=== PATIENT | female | born 1970 | race African-American/Black ===

== ENCOUNTER 2017-05-31 01:04 | Emergency (ER) | payer OTHER ==
[~2017-05-31] VITALS: Ht 172.7 cm; Wt 86.0 kg
[2017-05-31] MEDS ORDERED: LORAZEPAM 1MG TABLET PO ONE (02:45)
[2017-05-31 03:01] LABS: CLARITY URINE TURBID (CLEAR); COLOR URINE DARK YELLOW (YELLOW); GLUCOSE URINE NEGATIVE (NEGATIVE); KETONES URINE TRACE (NEGATIVE); LEUKOCYTE ESTERASE URINE NEGATIVE (NEGATIVE); NITRITE URINE NEGATIVE (NEGATIVE); OCCULT BLOOD URINE NEGATIVE (NEGATIVE); PROTEIN URINE TRACE (NEGATIVE)
[2017-05-31 03:01] LABS: BASOPHILS % 0.4 % (0.0-2.0); EOSINOPHILS % 3.4 % (0.0-5.0); HEMATOCRIT. 29.8 % (36.0-48.0); HEMOGLOBIN. 9.5 g/dL (12.0-16.0); LYMPHOCYTES % 17.8 % (20.0-50.0); MEAN CORPUSCULAR HEMOGLOBIN 27.7 pg (28.0-32.0); MEAN CORPUSCULAR VOLUME 86.7 fL (81.0-99.0); MEAN PLATELET VOLUME 8.1 fl (7.4-10.4); MONOCYTES % 8.4 % (2.0-8.0); PLATELET 208 x1000/uL (130-400); RED BLOOD CELL COUNT 3.43 mill/uL (4.2-5.4)
[2017-05-31 03:10] LABS: CARBON DIOXIDE 28 mEq/L (21-32); CHLORIDE 109 mEq/L (98-107); ETHANOL BLOOD < 10 mg/dL
[2017-05-31 03:10] LABS: *AMPHETAMINES SCREEN URINE NEGATIVE (NEGATIVE); *BARBITURATES SCREEN URINE NEGATIVE (NEGATIVE); *BENZODIAZEPINES SCREEN URINE NEGATIVE (NEGATIVE); CANNABINOID URINE SCREEN NEGATIVE (NEGATIVE); METHADONE URINE SCREEN NEGATIVE (NEGATIVE); OPIATES URINE SCREEN NEGATIVE (NEGATIVE); PHENCYCLIDINE URINE SCREEN NEGATIVE (NEGATIVE)
[2017-05-31 03:47] LABS: *COCAINE SCREEN URINE PRESUMTIVE POSITIVE (NEGATIVE)
[2017-05-31 18:00] VITALS: BP 124/65
== END 2017-05-31 20:33 ==
LOC: ER 01:04
DX: R45.851 Suicidal ideations (principal); D64.9 Anemia, unspecified; F14.10 Cocaine abuse, uncomplicated; F31.9 Bipolar disorder, unspecified
CPT/HCPCS: 36415; 80053; 80305; 80307; 80329; 81001; 81025; 85025; 99285; G0482

== ENCOUNTER 2017-06-25 21:22 | Emergency (ER) | payer OTHER ==
[~2017-06-25] VITALS: Ht 170.2 cm; Wt 136.4 kg
[2017-06-25 22:47] LABS: BASOPHILS % 0.7 % (0.0-2.0); EOSINOPHILS % 2.2 % (0.0-5.0); HEMATOCRIT. 34.7 % (36.0-48.0); HEMOGLOBIN. 11.3 g/dL (12.0-16.0); LYMPHOCYTES % 21.6 % (20.0-50.0); MEAN CORPUSCULAR HEMOGLOBIN 27.9 pg (28.0-32.0); MEAN PLATELET VOLUME 8.4 fl (7.4-10.4); MONOCYTES % 12.7 % (2.0-8.0); NEUTROPHILS % 62.8 % (40.0-76.0); PLATELET 233 x1000/uL (130-400); RED BLOOD CELL COUNT 4.04 mill/uL (4.2-5.4); RED CELL DISTRIBUTION WIDTH 16.8 % (11.6-14.6)
[2017-06-25 22:52] LABS: CHLORIDE 101 mEq/L (98-107)
[2017-06-25 23:01] LABS: CARBON DIOXIDE 27 mEq/L (21-32); ETHANOL BLOOD < 10 mg/dL
[2017-06-26 00:34] LABS: CLARITY URINE CLOUDY (CLEAR); COLOR URINE YELLOW (YELLOW); GLUCOSE URINE NEGATIVE (NEGATIVE); KETONES URINE TRACE (NEGATIVE); NITRITE URINE NEGATIVE (NEGATIVE); OCCULT BLOOD URINE TRACE (NEGATIVE); PROTEIN URINE TRACE (NEGATIVE)
[2017-06-26 00:35] LABS: LEUKOCYTE ESTERASE URINE 1+ (NEGATIVE); UROBILINOGEN URINE 0.2 E.U./dL (0.2-1.0)
[2017-06-26 01:09] LABS: *AMPHETAMINES SCREEN URINE NEGATIVE (NEGATIVE); *BARBITURATES SCREEN URINE NEGATIVE (NEGATIVE); *BENZODIAZEPINES SCREEN URINE NEGATIVE (NEGATIVE); *COCAINE SCREEN URINE PRESUMTIVE POSITIVE (NEGATIVE); CANNABINOID URINE SCREEN NEGATIVE (NEGATIVE); METHADONE URINE SCREEN NEGATIVE (NEGATIVE); OPIATES URINE SCREEN NEGATIVE (NEGATIVE); PHENCYCLIDINE URINE SCREEN NEGATIVE (NEGATIVE)
[2017-06-26] MEDS ORDERED: NITROFURANTOIN 100MG M/M CAPSULE PO SCH (09:00)
[2017-06-26 15:00] VITALS: BP 147/83
== END 2017-06-26 15:28 ==
LOC: ER 21:40
DX: R45.851 Suicidal ideations (principal); F32.9 Major depressive disorder, single episode, unspecified; I10 Essential (primary) hypertension; F17.210 Nicotine dependence, cigarettes, uncomplicated; F14.10 Cocaine abuse, uncomplicated
CPT/HCPCS: 36415; 80053; 80305; 80307; 80329; 81001; 85025; 99285; G0482

== ENCOUNTER 2017-09-03 16:08 | Emergency (ER) | payer OTHER ==
[~2017-09-03] VITALS: Ht 162.6 cm; Wt 136.0 kg
[2017-09-03] MEDS ORDERED: KETOROLAC 60MG/2ML VIAL IM ONE (17:30)
[2017-09-03 17:51] LABS: BASOPHILS % 0.6 % (0.0-2.0); EOSINOPHILS % 2.2 % (0.0-5.0); HEMATOCRIT. 32.6 % (36.0-48.0); HEMOGLOBIN. 10.4 g/dL (12.0-16.0); LYMPHOCYTES % 15.4 % (20.0-50.0); MEAN CORPUSCULAR HEMOGLOBIN 27.6 pg (28.0-32.0); MEAN CORPUSCULAR VOLUME 86.7 fL (81.0-99.0); MEAN PLATELET VOLUME 7.9 fl (7.4-10.4); MONOCYTES % 8.6 % (2.0-8.0); NEUTROPHILS % 73.2 % (40.0-76.0); PLATELET 257 x1000/uL (130-400); RED BLOOD CELL COUNT 3.76 mill/uL (4.2-5.4); RED CELL DISTRIBUTION WIDTH 16.9 % (11.6-14.6)
[2017-09-03 18:02] LABS: CARBON DIOXIDE 29 mEq/L (21-32); CHLORIDE 109 mEq/L (98-107); ETHANOL BLOOD < 10 mg/dL
[2017-09-03 18:03] LABS: *AMPHETAMINES SCREEN URINE NEGATIVE (NEGATIVE); *BARBITURATES SCREEN URINE NEGATIVE (NEGATIVE); *BENZODIAZEPINES SCREEN URINE NEGATIVE (NEGATIVE); CANNABINOID URINE SCREEN NEGATIVE (NEGATIVE); METHADONE URINE SCREEN NEGATIVE (NEGATIVE); OPIATES URINE SCREEN NEGATIVE (NEGATIVE); PHENCYCLIDINE URINE SCREEN NEGATIVE (NEGATIVE)
[2017-09-03 18:42] LABS: *COCAINE SCREEN URINE PRESUMTIVE POSITIVE (NEGATIVE)
[2017-09-04] MEDS ORDERED: ACETAMINOPHEN 325MG TABLET PO ONE (08:00)
[2017-09-04 10:14] VITALS: BP 151/83
== END 2017-09-04 10:43 | disposition home or self-care (01) ==
LOC: ER 16:13
DX: R45.851 Suicidal ideations (principal); R45.850 Homicidal ideations; F99 Mental disorder, not otherwise specified; I10 Essential (primary) hypertension; G89.29 Other chronic pain; F14.10 Cocaine abuse, uncomplicated; F17.200 Nicotine dependence, unspecified, uncomplicated; Z59.0 Homelessness
CPT/HCPCS: 36415; 80048; 80305; 80307; 80329; 81025; 85025; 96372; 99284; G0482; J1885

== ENCOUNTER 2018-04-28 21:24 | Emergency (ER) | payer OTHER ==
[~2018-04-28] VITALS: Ht 172.7 cm; Wt 159.0 kg
[2018-04-29] MEDS ORDERED: ACETAMINOPHEN 325MG TABLET PO ONE ×2 (00:45→15:00)
[2018-04-29 00:58] LABS: BASOPHILS % 0.7 % (0.0-2.0); HEMATOCRIT. 30.8 % (36.0-48.0); MEAN CORPUSCULAR HEMOGLOBIN 27.3 pg (28.0-32.0); MEAN PLATELET VOLUME 7.5 fl (7.4-10.4); MONOCYTES % 8.8 % (2.0-8.0); NEUTROPHILS % 70.5 % (40.0-76.0); PLATELET 284 x1000/uL (130-400); RED BLOOD CELL COUNT 3.67 mill/uL (4.2-5.4); RED CELL DISTRIBUTION WIDTH 17.3 % (11.6-14.6)
[2018-04-29 01:04] LABS: CHLORIDE 108 mEq/L (98-107)
[2018-04-29 01:07] LABS: ETHANOL BLOOD < 10 mg/dL
[2018-04-29 01:14] LABS: *AMPHETAMINES SCREEN URINE NEGATIVE (NEGATIVE); *BARBITURATES SCREEN URINE NEGATIVE (NEGATIVE); *BENZODIAZEPINES SCREEN URINE NEGATIVE (NEGATIVE); METHADONE URINE SCREEN NEGATIVE (NEGATIVE)
[2018-04-29 01:15] LABS: CANNABINOID URINE SCREEN NEGATIVE (NEGATIVE); OPIATES URINE SCREEN NEGATIVE (NEGATIVE); PHENCYCLIDINE URINE SCREEN NEGATIVE (NEGATIVE)
[2018-04-29 01:17] LABS: *COCAINE SCREEN URINE PRESUMTIVE POSITIVE (NEGATIVE)
[2018-04-30] MEDS ORDERED: IBUPROFEN 800MG TABLET PO ONE (00:15)
[2018-04-30] MEDS ORDERED: LORAZEPAM 1MG TABLET PO ONE (16:30)
[2018-05-01 16:04] LABS: CLARITY URINE CLEAR (CLEAR); COLOR URINE YELLOW (YELLOW); KETONES URINE NEGATIVE (NEGATIVE); LEUKOCYTE ESTERASE URINE NEGATIVE (NEGATIVE); NITRITE URINE NEGATIVE (NEGATIVE); OCCULT BLOOD URINE NEGATIVE (NEGATIVE); PH URINE 7.5 (4.5-8.0); PROTEIN URINE NEGATIVE (NEGATIVE); SPECIFIC GRAVITY URINE 1.013 (1.005-1.030); UROBILINOGEN URINE 0.2 E.U./dL (0.2-1.0)
[2018-05-01] MEDS ORDERED: CLONIDINE 0.1MG TABLET PO ONE (19:15)
[2018-05-01] MEDS ORDERED: DIPHENHYDRAMINE 25MG CAPSULE PO ONE (19:15)
[2018-05-01] MEDS: QUETIAPINE FUMARATE 25MG TABLET PO SCH (21:13)
[2018-05-02] MEDS ORDERED: CLONIDINE 0.1MG TABLET PO ONE (05:30)
[2018-05-02] MEDS ORDERED: CLONIDINE 0.1MG TABLET PO NR (05:45)
[2018-05-02] MEDS: QUETIAPINE FUMARATE 25MG TABLET PO SCH (09:10)
[2018-05-02 13:04] VITALS: BP 130/70
== END 2018-05-02 13:00 ==
LOC: ER 21:43
DX: R45.851 Suicidal ideations (principal); M25.561 Pain in right knee; M25.562 Pain in left knee; G89.29 Other chronic pain; F31.9 Bipolar disorder, unspecified; F20.9 Schizophrenia, unspecified; I10 Essential (primary) hypertension; F14.10 Cocaine abuse, uncomplicated
CPT/HCPCS: 36415; 80048; 80076; 80305; 80307; 80329; 81003; 81025; 85025; 99284; G0482; Q0163

== ENCOUNTER 2018-05-16 01:16 | Emergency (ER) | payer OTHER ==
[~2018-05-16] VITALS: Ht 167.6 cm; Wt 150.0 kg
[2018-05-16 03:26] LABS: BASOPHILS % 0.5 % (0.0-2.0); EOSINOPHILS % 1.5 % (0.0-5.0); HEMATOCRIT. 31.4 % (36.0-48.0); HEMOGLOBIN. 9.9 g/dL (12.0-16.0); LYMPHOCYTES % 18.4 % (20.0-50.0); MEAN CORPUSCULAR VOLUME 85.5 fL (81.0-99.0); MEAN PLATELET VOLUME 7.8 fl (7.4-10.4); MONOCYTES % 8.6 % (2.0-8.0); PLATELET 275 x1000/uL (130-400); RED BLOOD CELL COUNT 3.67 mill/uL (4.2-5.4); RED CELL DISTRIBUTION WIDTH 18.4 % (11.6-14.6)
[2018-05-16 03:30] LABS: CHLORIDE 107 mEq/L (98-107)
[2018-05-16 03:35] LABS: ETHANOL BLOOD < 10 mg/dL
[2018-05-16 04:27] LABS: CLARITY URINE CLOUDY (CLEAR); COLOR URINE YELLOW (YELLOW); KETONES URINE 1+ (NEGATIVE); LEUKOCYTE ESTERASE URINE NEGATIVE (NEGATIVE); NITRITE URINE NEGATIVE (NEGATIVE); OCCULT BLOOD URINE 2+ (NEGATIVE); PROTEIN URINE TRACE (NEGATIVE); SPECIFIC GRAVITY URINE 1.035 (1.005-1.030)
[2018-05-16 04:40] LABS: *BARBITURATES SCREEN URINE NEGATIVE (NEGATIVE); METHADONE URINE SCREEN NEGATIVE (NEGATIVE); OPIATES URINE SCREEN NEGATIVE (NEGATIVE); PHENCYCLIDINE URINE SCREEN NEGATIVE (NEGATIVE)
[2018-05-16 04:41] LABS: *AMPHETAMINES SCREEN URINE NEGATIVE (NEGATIVE); *BENZODIAZEPINES SCREEN URINE NEGATIVE (NEGATIVE); CANNABINOID URINE SCREEN NEGATIVE (NEGATIVE)
[2018-05-16] MEDS ORDERED: ACETAMINOPHEN 325MG TABLET PO ONE (05:15)
[2018-05-16] MEDS ORDERED: LORAZEPAM 1MG TABLET PO ONE ×2 (05:15→15:00)
[2018-05-16 05:24] LABS: *COCAINE SCREEN URINE PRESUMTIVE POSITIVE (NEGATIVE)
[2018-05-16] MEDS ORDERED: ACETAMINOPHEN WITH CODEINE 300/30MG TABLET PO ONE (23:15)
[2018-05-17] MEDS ORDERED: KETOROLAC 60MG/2ML VIAL IM ONE (09:00)
[2018-05-17 15:33] VITALS: BP 137/71
== END 2018-05-17 15:56 | disposition home or self-care (01) ==
LOC: ER 01:16
DX: R45.851 Suicidal ideations (principal); F20.9 Schizophrenia, unspecified; I10 Essential (primary) hypertension; F14.10 Cocaine abuse, uncomplicated; Z59.0 Homelessness
CPT/HCPCS: 36415; 80053; 80305; 80307; 80329; 81003; 85025; 96372; 99285; G0482; J1885; Z7610

== ENCOUNTER 2018-06-02 13:31 | Emergency (ER) | payer OTHER ==
[~2018-06-02] VITALS: Ht 172.7 cm; Wt 136.0 kg
[2018-06-02 16:50] LABS: BASOPHILS % 0.8 % (0.0-2.0); EOSINOPHILS % 1.7 % (0.0-5.0); HEMATOCRIT. 30.6 % (36.0-48.0); HEMOGLOBIN. 9.8 g/dL (12.0-16.0); MEAN CORPUSCULAR HEMOGLOBIN 27.2 pg (28.0-32.0); MEAN CORPUSCULAR VOLUME 85.3 fL (81.0-99.0); MEAN PLATELET VOLUME 8.3 fl (7.4-10.4); MONOCYTES % 8.6 % (2.0-8.0); NEUTROPHILS % 69.9 % (40.0-76.0); PLATELET 267 x1000/uL (130-400); RED BLOOD CELL COUNT 3.59 mill/uL (4.2-5.4); RED CELL DISTRIBUTION WIDTH 17.9 % (11.6-14.6)
[2018-06-02 16:57] LABS: CHLORIDE 106 mEq/L (98-107)
[2018-06-02 17:01] LABS: ETHANOL BLOOD < 10 mg/dL
[2018-06-02 17:39] LABS: CLARITY URINE CLEAR (CLEAR); COLOR URINE DARK YELLOW (YELLOW); KETONES URINE TRACE (NEGATIVE); LEUKOCYTE ESTERASE URINE NEGATIVE (NEGATIVE); NITRITE URINE NEGATIVE (NEGATIVE); OCCULT BLOOD URINE NEGATIVE (NEGATIVE); PROTEIN URINE 1+ (NEGATIVE); SPECIFIC GRAVITY URINE 1.037 (1.005-1.030)
[2018-06-02 17:49] LABS: *AMPHETAMINES SCREEN URINE NEGATIVE (NEGATIVE); *BARBITURATES SCREEN URINE NEGATIVE (NEGATIVE); *BENZODIAZEPINES SCREEN URINE NEGATIVE (NEGATIVE); METHADONE URINE SCREEN NEGATIVE (NEGATIVE); OPIATES URINE SCREEN NEGATIVE (NEGATIVE)
[2018-06-02 17:50] LABS: CANNABINOID URINE SCREEN NEGATIVE (NEGATIVE); PHENCYCLIDINE URINE SCREEN NEGATIVE (NEGATIVE)
[2018-06-02 17:53] LABS: *COCAINE SCREEN URINE PRESUMTIVE POSITIVE (NEGATIVE)
[2018-06-02 23:10] VITALS: BP 148/90
== END 2018-06-02 23:16 | disposition home or self-care (01) ==
LOC: ER 14:25
DX: F14.10 Cocaine abuse, uncomplicated (principal); R45.851 Suicidal ideations; F31.9 Bipolar disorder, unspecified; F20.9 Schizophrenia, unspecified; F12.10 Cannabis abuse, uncomplicated
CPT/HCPCS: 36415; 71045; 80053; 80305; 80307; 80329; 81003; 81025; 85025; 99284; G0482; Z7610

== ENCOUNTER 2019-03-25 03:01 | Emergency (ER) | payer OTHER ==
[~2019-03-25] VITALS: Ht 172.7 cm; Wt 127.0 kg
[2019-03-25] MEDS ORDERED: KETOROLAC 60MG/2ML VIAL IM ONE (05:15)
[2019-03-25] MEDS ORDERED: HYDROCODONE/ACETAMINOPHEN 5/325MG TABLET PO ONE (07:00)
[2019-03-25 11:16] VITALS: BP 120/60
== END 2019-03-25 11:18 | disposition home or self-care (01) ==
LOC: ER 03:01
DX: M25.561 Pain in right knee (principal); F17.200 Nicotine dependence, unspecified, uncomplicated; F14.10 Cocaine abuse, uncomplicated; I10 Essential (primary) hypertension
CPT/HCPCS: 73562; 81025; 96372; 99283; J1885; Z7610

== ENCOUNTER 2023-02-03 08:08 | Emergency (ER) | payer MEDICAID, OTHER ==
[~2023-02-03] VITALS: Ht 167.6 cm; Wt 113.0 kg
[2023-02-03 08:10] VITALS: BP 184/100
== END 2023-02-03 17:30 | disposition left against medical advice (07) ==
LOC: ER 08:20
DX: R07.9 Chest pain, unspecified (principal)
CPT/HCPCS: 71045; 93005; 99281; 99283

== ENCOUNTER 2024-12-06 19:35 | Emergency (ER) | payer OTHER ==
[~2024-12-06] VITALS: Ht 175.3 cm; Wt 100.0 kg
[~2024-12-06 19:35] MED LIST: QUET25TA MT
[2024-12-06 19:43] VITALS: O2SAT 100
[2024-12-06 21:00] LABS: HEMATOCRIT. 31.3 % (36.0-48.0); MEAN CORPUSCULAR HEMOGLOBIN 29.7 pg (28.0-32.0); MEAN CORPUSCULAR HGB CONC 32.1 g/dL (31.0-37.0); MEAN CORPUSCULAR VOLUME 92.5 fL (81.0-99.0); MEAN PLATELET VOLUME 8.2 fl (7.4-10.4); PLATELET 199 x1000/uL (130-400); RED BLOOD CELL COUNT 3.39 mill/uL (4.2-5.4); RED CELL DISTRIBUTION WIDTH 14.3 % (11.6-14.6); WHITE BLOOD COUNT 6.2 x1000/uL (4.5-11.0)
[2024-12-06 21:01] LABS: DIFFERENTIAL COMMENT 1
[2024-12-06 21:06] LABS: CHLORIDE 115 mEq/L (98-107); POTASSIUM 4.1 mEq/L (3.5-5.1); SODIUM 148 mEq/L (136-145)
[2024-12-06 21:07] LABS: CARBON DIOXIDE 27 mEq/L (21-32)
[2024-12-06 21:08] LABS: CALCIUM 8.5 mg/dL (8.7-10.4)
[2024-12-06 21:12] LABS: CREATININE 0.9 mg/dL (0.6-1.0); GLUCOSE 106 mg/dL (70-105)
[2024-12-06 21:13] LABS: UREA NITROGEN BLOOD 25 mg/dL (9-23)
[2024-12-06 21:14] LABS: ACETAMINOPHEN < 2 ug/mL (10-30)
[2024-12-06 21:19] LABS: HCG SCREEN NEGATIVE
[2024-12-06 21:21] LABS: PLATELET ESTIMATE NORMAL
[2024-12-06 21:25] LABS: *AMPHETAMINES SCREEN URINE NEGATIVE (NEGATIVE); *BARBITURATES SCREEN URINE NEGATIVE (NEGATIVE); *BENZODIAZEPINES SCREEN URINE NEGATIVE (NEGATIVE); ETHANOL BLOOD < 10 mg/dL (<10)
[2024-12-06 21:26] LABS: *COCAINE SCREEN URINE PRESUMPTIVE POSITIVE (NEGATIVE); CANNABINOID URINE SCREEN NEGATIVE (NEGATIVE); ECSTASY MDMA SCREEN URINE NEGATIVE (NEGATIVE); METHADONE URINE SCREEN NEGATIVE (NEGATIVE); OPIATES URINE SCREEN NEGATIVE (NEGATIVE); PHENCYCLIDINE URINE SCREEN NEGATIVE (NEGATIVE)
[2024-12-06 21:32] LABS: CLARITY URINE CLEAR (CLEAR); COLOR URINE YELLOW (YELLOW)
[2024-12-06 21:33] LABS: GLUCOSE URINE NEGATIVE (NEGATIVE); KETONES URINE NEGATIVE (NEGATIVE); LEUKOCYTE ESTERASE URINE 1+ (NEGATIVE); NITRITE URINE NEGATIVE (NEGATIVE); OCCULT BLOOD URINE 1+ (NEGATIVE); PROTEIN URINE TRACE (NEGATIVE); UROBILINOGEN URINE 0.2 E.U./dL (0.2-1.0)
[2024-12-06 21:37] LABS: BACTERIA URINE TRACE; SQUAMOUS EPITHELIAL CELL URINE FEW /lpf (RARE/1+)
[2024-12-06] MEDS: ACETAMINOPHEN 325MG TABLET PO ONE (21:59)
[2024-12-06 22:05] LABS: TROPONIN I HIGH SENSITIVITY 14 ng/L (3.0-34)
[2024-12-06] MEDS ORDERED: DIPHENHYDRAMINE 50MG CAPSULE PO ONE (23:30)
[2024-12-06] MEDS: DIPHENHYDRAMINE 25MG CAPSULE PO NR (23:40)
[2024-12-07] MEDS: NITROFURANTOIN 100MG M/M CAPSULE PO ONE (00:22)
[2024-12-07 01:28] LABS: TROPONIN I HIGH SENSITIVITY 13 ng/L (3.0-34)
[2024-12-07] MEDS: QUETIAPINE FUMARATE 50MG TABLET PO SCH (21:00)
[2024-12-08] MEDS: HYDROCHLOROTHIAZIDE 25MG TABLET PO ONE (11:00)
[2024-12-08] MEDS: CLONIDINE 0.1MG TABLET PO NR (22:59)
[2024-12-08] MEDS: CLONIDINE 0.2MG TABLET PO ONE (23:00)
[2024-12-09] MEDS: HYDRALAZINE 20MG/ML VIAL IV ONE ×2 (03:44→04:02)
[2024-12-09] MEDS: HYDROCHLOROTHIAZIDE 25MG TABLET PO ONE (03:45)
[2024-12-09] MEDS: LABETALOL 5MG/ML 4ML INJ IV ONE (04:26)
[2024-12-09] MEDS: CLONIDINE 0.2MG TABLET PO ONE (07:15)
[2024-12-09] MEDS: CLONIDINE 0.1MG TABLET PO NR (08:32)
[2024-12-09 11:06] VITALS: BP 134/93; PULSE 90; RESP 18; TEMP 36.8; O2SAT 99
== END 2024-12-09 11:10 | disposition short-term general hospital (02) ==
LOC: ER 19:35
DX: R45.851 Suicidal ideations (principal); R07.89 Other chest pain; F17.200 Nicotine dependence, unspecified, uncomplicated; F14.10 Cocaine abuse, uncomplicated; I11.0 Hypertensive heart disease with heart failure; I50.9 Heart failure, unspecified; E11.9 Type 2 diabetes mellitus without complications; F31.9 Bipolar disorder, unspecified; Z20.822 Contact with and (suspected) exposure to COVID-19; Z98.890 Other specified postprocedural states; Z86.59 Personal history of other mental and behavioral disorders
CPT/HCPCS: 80305; 80048; 81003; 80307; 80329; 80320; 84703; 85025; 84484; 36415; 71045; 93005; 99285; 87426; 96374; 96376; Q0163; Z7610 ×2; J0360; J3490; G0480

== ENCOUNTER 2025-08-30 00:23 | Emergency (ER) | payer OTHER ==
[~2025-08-30] VITALS: Ht 172.7 cm; Wt 100.0 kg
[~2025-08-30 00:23] MED LIST changes: +NIFE-32 MT
[2025-08-30 00:34] VITALS: O2SAT 96
[2025-08-30] MEDS: IBUPROFEN 600MG TABLET PO ONE (00:51)
[2025-08-30] MEDS: METHOCARBAMOL 500MG TABLET PO ONE (00:51)
[2025-08-30] MEDS ORDERED: IBUP-1455 MT (02:15)
[2025-08-30] MEDS ORDERED: METH-653 MT (02:15)
[2025-08-30 04:23] VITALS: BP 154/100; PULSE 71; RESP 18; TEMP 36.8; O2SAT 99
== END 2025-08-30 04:27 | disposition home or self-care (01) ==
LOC: ER 00:23
DX: S29.012A Strain of muscle and tendon of back wall of thorax, initial encounter (principal); R06.02 Shortness of breath; E11.9 Type 2 diabetes mellitus without complications; I11.0 Hypertensive heart disease with heart failure; F31.9 Bipolar disorder, unspecified; F14.90 Cocaine use, unspecified, uncomplicated; Z79.899 Other long term (current) drug therapy; X58.XXXA Exposure to other specified factors, initial encounter; Y93.89 Activity, other specified; Y92.89 Other specified places as the place of occurrence of the external cause; Y99.8 Other external cause status
CPT/HCPCS: 71045; 99283

== ENCOUNTER 2025-09-16 10:03 | Emergency (ER) | payer OTHER ==
[~2025-09-16] VITALS: Ht 172.7 cm; Wt 73.0 kg
[~2025-09-16 10:03] MED LIST changes: +IBUP-1455 MT; +METH-653 MT
[2025-09-16 10:05] VITALS: O2SAT 99
[2025-09-16 11:03] LABS: CLARITY URINE CLEAR (CLEAR); COLOR URINE YELLOW (YELLOW); GLUCOSE URINE NEGATIVE (NEGATIVE); KETONES URINE NEGATIVE (NEGATIVE); LEUKOCYTE ESTERASE URINE TRACE (NEGATIVE); NITRITE URINE NEGATIVE (NEGATIVE); OCCULT BLOOD URINE NEGATIVE (NEGATIVE); PH URINE 8.0 (4.5-8.0); PROTEIN URINE TRACE (NEGATIVE); SPECIFIC GRAVITY URINE 1.014 (1.005-1.030); UROBILINOGEN URINE 0.2 E.U./dL (0.2-1.0)
[2025-09-16 11:16] LABS: *AMPHETAMINES SCREEN URINE NEGATIVE (NEGATIVE); *BARBITURATES SCREEN URINE NEGATIVE (NEGATIVE); *BENZODIAZEPINES SCREEN URINE NEGATIVE (NEGATIVE); *COCAINE SCREEN URINE PRESUMPTIVE POSITIVE (NEGATIVE); CANNABINOID URINE SCREEN NEGATIVE (NEGATIVE); ECSTASY MDMA SCREEN URINE NEGATIVE (NEGATIVE); METHADONE URINE SCREEN NEGATIVE (NEGATIVE); OPIATES URINE SCREEN NEGATIVE (NEGATIVE); PHENCYCLIDINE URINE SCREEN NEGATIVE (NEGATIVE)
[2025-09-16 11:33] LABS: HYALINE CASTS URINE 0-5 /lpf; SQUAMOUS EPITHELIAL CELL URINE 1+ /lpf (RARE/1+)
[2025-09-16 11:35] LABS: TRICHOMONAS URINE 1+
[2025-09-16 11:37] LABS: BACTERIA URINE 1+; RBC URINE 0-2 /hpf (0-2)
[2025-09-16 12:25] LABS: BASOPHILS % 0.5 % (0.0-2.0); EOSINOPHILS % 2.0 % (0.0-5.0); HEMATOCRIT. 34.8 % (36.0-48.0); HEMOGLOBIN. 10.8 g/dL (12.0-16.0); LYMPHOCYTES % 14.4 % (20.0-50.0); MEAN PLATELET VOLUME 8.6 fl (7.4-10.4); MONOCYTES % 6.4 % (2.0-8.0); NEUTROPHILS % 76.7 % (40.0-76.0); PLATELET 203 x1000/uL (130-400); RED BLOOD CELL COUNT 3.76 mill/uL (4.2-5.4); RED CELL DISTRIBUTION WIDTH 14.3 % (11.6-14.6)
[2025-09-16 12:39] LABS: CREATININE 1.2 mg/dL (0.6-1.0); HCG SCREEN NEGATIVE; UREA NITROGEN BLOOD 17 mg/dL (9-23)
[2025-09-16 12:40] LABS: ETHANOL BLOOD < 10 mg/dL (<10)
[2025-09-16] MEDS: CEPHALEXIN 250MG CAPSULE PO ONE (15:18)
[2025-09-16] MEDS: METRONIDAZOLE 500MG TABLET PO STA (15:18)
[2025-09-16] MEDS: AMLODIPINE 5MG TABLET PO ONE (20:22)
[2025-09-17] MEDS: CLONIDINE 0.1MG TABLET PO ONE (00:27)
[2025-09-17] MEDS: LORAZEPAM 2MG/ML UD SYRINGE IM NR (00:27)
[2025-09-17] MEDS: AMLODIPINE 5MG TABLET PO ONE (00:27)
[2025-09-17 04:15] VITALS: BP 136/76; PULSE 74; RESP 18; TEMP 36.9; O2SAT 99
== END 2025-09-17 04:38 ==
LOC: ER 10:03
DX: R45.850 Homicidal ideations (principal); N39.0 Urinary tract infection, site not specified; E11.9 Type 2 diabetes mellitus without complications; F17.200 Nicotine dependence, unspecified, uncomplicated; F14.90 Cocaine use, unspecified, uncomplicated; F31.9 Bipolar disorder, unspecified; Z79.899 Other long term (current) drug therapy; Z98.890 Other specified postprocedural states; Z20.822 Contact with and (suspected) exposure to COVID-19
CPT/HCPCS: 80305; 80048; 81003; 80307; 80329; 80320; 84703; 85025; 36415; 99285; 87426; 96372; J2060; G0480